=== PATIENT | female | born 1980 | race Caucasian/White ===

== ENCOUNTER 2018-04-09 15:23 | Emergency (ER) | payer BC, OTHER ==
[~2018-04-09] VITALS: Ht 149.9 cm; Wt 74.8 kg
[2018-04-09] MEDS ORDERED: DIPHTH,PERTUSS(ACELL),TET TOX 0.5 ML DISP.SYRIN. VAX IM ONE (15:45)
[2018-04-09] MEDS ORDERED: AMOXICILLIN/K CLAV 875/125MG TABLET. PO ONE (15:45)
--- NOTE | 2018-04-09 15:59 | RAD ---
Right forearm, 2 views, 04/09/2018: HISTORY: Dog bite, bruising and swelling No fracture or bony abnormality is detected. There is subcutaneous edema in the forearm most prominent laterally and anteriorly. No radiopaque foreign body is evident in the soft tissues. IMPRESSION: No significant bony abnormality is detected. Electronically signed by: Jaspreet Duenas MD (04/09/2018 3:55 PM) [facility]
[2018-04-09] MEDS ORDERED: HYDROcodone/APAP 10/325 1 TAB TABLET PO ONE (16:00)
[2018-04-09] MEDS ORDERED: TRAM50TA PO (16:20)
[2018-04-09] MEDS ORDERED: SULF1TAB24 PO (16:20)
[2018-04-09] MEDS ORDERED: SMZ/TMP 800/160MG TABLET. PO ONE ×2 (16:30→16:45)
[2018-04-09 16:50] VITALS: BP 127/86
--- NOTE | 2018-04-09 17:48 | ED.ADGEN ---
Past History Past Medical History: Migraines Past Surgical History: Other Alcohol Use: None Drug Use: None Adult General Chief Complaint Chief Complaint Animal bite to right forearm HPI HPI Patient is a 38-year-old handed female who presents with Dr. suarez to right forearm. 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 Patient noted to have 3 nongaping puncture wounds to the extensor forearm and one nongaping puncture wound to the flexor forearm. Patient states pain is gradually got worse throughout the day continued right arm use. Tetanus status is unknown. Review of Systems Review of Systems Review symptoms as per history of present illness. All other review symptoms are negative. All other systems were reviewed and found to be within normal limits, except as documented in this note. Current Medications Current Medications Current Medications Medications (Trade) Dose Ordered Sig/Jimenez Start Time Stop Time Status Last Admin Dose Admin Acetaminophen/ Hydrocodone Bitart (Lortab 10/325) 1 tab 1X ONCE 04/09/18 16:00 04/09/18 16:01 DC 04/09/18 16:44 1 TAB Amoxicillin/ Clavulanate Potassium (Augmentin 875/ 125mg) 1 tab 1X ONCE 04/09/18 15:45 04/09/18 15:45 DC Diphtheria/ Tetanus/Acell Pertussis (Boostrix) 0.5 ml ONCE ONCE 04/09/18 15:45 04/09/18 15:46 DC 04/09/18 16:46 0.5 ML Trimethoprim/ Sulfamethoxazole (Bactrim Ds) 1 tab 1X ONCE 04/09/18 16:45 04/09/18 16:46 DC Allergies Allergies Allergies Coded Allergies Type Severity Reaction Last Updated Verified Penicillins Allergy Unknown 04/09/18 Yes Physical Exam Physical Exam Constitutional: Well developed, well nourished, moderate pain, non-toxic appearance. [] HENT: Normocephalic, atraumatic, bilateral external ears normal, oropharynx moist, no oral exudates, nose normal. [] Extremities: Right forearm, minimal swelling, no cellulitis, non-gaping wounds to right extensor forearm consistent with animal bite. One non-gaping wound to flexor forearm. No purulent drainage or cellulitis. Pain with range of motion. No neurovascular deficits.] Current Patient Data Vital Signs Vital Signs Date Time Temp Pulse Resp B/P (MAP) Pulse Ox O2 Delivery O2 Flow Rate FiO2 04/09/18 16:50 82 18 127/86 (100) 98 Room Air 04/09/18 15:23 99.1 EKG EKG [] Radiology/Procedures Radiology/Procedures [XR forearm: No foreign bodies or bony injury] Course & Med Decision Making Course & Med Decision Making Pertinent Labs and Imaging studies reviewed. (See chart for details) [Tetanus updated. First dose of antibiotics given. Patient instructed to follow- up with PCP tomorrow or return to the ED for repeat evaluation.] Final Impression Final Impression [1. Animal bite to right forearm] Dragon Disclaimer Dragon Disclaimer This electronic medical record was generated, in whole or in part, using a voice recognition dictation system. MOIRA COLMENARES DO Apr 09, 2018 17:48
[2018-04-10] MEDS ORDERED: CLIN300C8 PO (14:18)
[2018-04-10] MEDS ORDERED: CIPR500T PO (14:18)
== END 2018-04-09 16:50 | disposition home or self-care (01) ==
LOC: ER 15:23
DX: S51.851A Open bite of right forearm, initial encounter (principal); G43.909 Migraine, unspecified, not intractable, without status migrainosus; Z88.0 Allergy status to penicillin; W54.0XXA Bitten by dog, initial encounter; Y93.89 Activity, other specified; Y99.8 Other external cause status; Y92.89 Other specified places as the place of occurrence of the external cause
CPT/HCPCS: 73090; 90471; 90715; 99284-25

== ENCOUNTER 2018-04-10 13:35 | Emergency (ER) | payer OTHER ==
[~2018-04-10] VITALS: Ht 149.9 cm; Wt 74.8 kg
[~2018-04-10 13:35] MED LIST: SULF1TAB24 PO; TRAM50TA PO
[2018-04-10 13:55] VITALS: BP 125/70
[2018-04-10] MEDS ORDERED: CIPR500T PO (14:18)
[2018-04-10] MEDS ORDERED: CLIN300C8 PO (14:18)
--- NOTE | 2018-04-10 14:28 | PHYS DOC ---
Past History Past Medical History: Migraines Past Surgical History: Other Alcohol Use: None Drug Use: None Adult General Chief Complaint Chief Complaint: WOUND CHECK HPI HPI Patient is a 38-year-old female who is here for a wound check. 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 Says she is here for routine recheck because she does not have a primary doctor in the area is still quite painful and she thinks it might be getting a little red. No fever. the dog has been monitored by animal [employer] for a 10 day. Patient states that she does not know the status of the dog's vaccinations. Review of Systems Review of Systems Constitutional: Denies fever or chills [] Musculoskeletal: arm pain] Integument: see hpi Neurologic: Denies headache, focal weakness or sensory changes [] Endocrine: Denies polyuria or polydipsia [] All other systems were reviewed and found to be within normal limits, except as documented in this note. Allergies Allergies Allergies Coded Allergies Type Severity Reaction Last Updated Verified Penicillins Allergy Unknown 04/09/18 Yes Physical Exam Physical Exam Constitutional: Well developed, well nourished, no acute distress, non-toxic appearance. [] HENT: Normocephalic, atraumatic, bilateral external ears normal, oropharynx moist, no oral exudates, nose normal. [] Eyes: PERRLA, EOMI, conjunctiva normal, no discharge. [] Neck: Normal range of motion, no tenderness, supple, no stridor. [] normal effort no increased work of breathing Abdomen: Bowel sounds normal, soft, no tenderness, no masses, no pulsatile masses. [] Skin: Warm, dry, no erythema, no rash. [] Back: No tenderness, no CVA tenderness. [] Extremities: Right forearm there is mild erythema with some ecchymosis, there is scattered abrasions on the volar and dorsal aspect. No fluctuance was identified Neurologic: Alert and oriented X 3, normal motor function, normal sensory function, no focal deficits noted. [] Psychologic: Affect normal, judgement normal, mood normal. [] Current Patient Data Vital Signs Vital Signs Date Time Temp Pulse Resp B/P (MAP) Pulse Ox O2 Delivery O2 Flow Rate FiO2 7/12/18 13:55 98.2 77 18 98 Room Air EKG EKG [] Radiology/Procedures Radiology/Procedures [] Course & Med Decision Making Course & Med Decision Making Pertinent Labs and Imaging studies reviewed. (See chart for details) 38-year-old female with recheck dog bite. Patient does have evidence of mild swelling with erythema suggestive of possible developing wound infection she was on Bactrim for prophylaxis but I think we should switch that to clindamycin and Cipro for better strep and anaerobic coverage. Patient is agreeable to this she has a penicillin allergy she said it was very very bad she cannot take any kind of penicillin so I have not given her Augmentin. The dog is currently being monitored animal control. Given the extremely low incidence of dog to humans transmission at this point in time we will not be doing any rabies prophylaxis the dog is successfully being monitored as we speak. Dragon Disclaimer Dragon Disclaimer This electronic medical record was generated, in whole or in part, using a voice recognition dictation system. Departure Departure: Impression: Primary Impression: Cellulitis Disposition: 01 HOME, SELF-CARE Condition: STABLE Patient Instructions: Animal Bite, [id number] Scripts Ciprofloxacin Hcl (CIPROFLOXACIN HCL) 500 Mg Tablet 1 TAB PO BID, #14 TAB Prov: DARRYL ZHANG MD 04/10/18 Clindamycin Hcl (CLINDAMYCIN HCL) 300 Mg Capsule 1 CAP PO TID, #21 CAP Prov: DARRYL ZHANG MD 04/10/18 DARRYL ZHANG MD Apr 10, 2018 14:28
== END 2018-04-10 14:22 | disposition home or self-care (01) ==
LOC: ER 13:35
DX: L03.113 Cellulitis of right upper limb (principal); S50.11XA Contusion of right forearm, initial encounter; G43.909 Migraine, unspecified, not intractable, without status migrainosus; Z88.0 Allergy status to penicillin; W54.0XXA Bitten by dog, initial encounter; Y93.89 Activity, other specified; Y99.8 Other external cause status; Y92.89 Other specified places as the place of occurrence of the external cause
CPT/HCPCS: 99283

== ENCOUNTER 2018-07-16 09:00 | Emergency (ER) | payer SELFPAY ==
[~2018-07-16] VITALS: Ht 149.9 cm; Wt 67.5 kg
[~2018-07-16 09:00] MED LIST changes: +CIPR500T PO; +CLIN300C8 PO
[2018-07-16 09:42] LABS: BASO # 0.1 x10^3/uL (0.0-0.2); BASO % 1 % (0-3); EOS % 0 % (0-3); HEMATOCRIT 39.9 % (36.0-47.0); HEMOGLOBIN 13.9 g/dL (12.0-15.5); LYMPH # 0.8 x10^3/uL (1.0-4.8); LYMPH % 13 % (24-48); MEAN CORPUSCULAR HEMOGLOBIN 32 pg (25-35); MEAN CORPUSCULAR HGB CONC 35 g/dL (31-37); MEAN CORPUSCULAR VOLUME 93 fL (79-100); MONO # 0.3 x10^3/uL (0.0-1.1); MONO % 5 % (0-9); NEUT # 4.8 x10^3uL (1.8-7.7); NEUT % 81 % (31-73); PLATELET COUNT 203 x10^3/uL (140-400); RED CELL DISTRIBUTION WIDTH 14.1 % (11.5-14.5); WHITE BLOOD COUNT 5.9 x10^3/uL (4.0-11.0)
[2018-07-16] MEDS ORDERED: ASPIRIN 81 MG TAB.CHEW PO ONE (09:45)
--- NOTE | 2018-07-16 09:45 | PHYS DOC ---
Past History Past Medical History: Migraines Past Surgical History: Other Smoking: Cigarettes Alcohol Use: None Drug Use: None Adult General Chief Complaint Chief Complaint: CHEST PAIN HPI HPI Patient is a 38 year old female who presents with complaining of chest pain. Patient complaining of constant substernal sharp pain for the last 4 days with radiation to her back that getting worse with taking deep breaths. Patient complaining of intermittent fevers and states she had temperature of 101 this morning and took Excedrin that helped for her fever and pain. Patient complaining of mild nonproductive cough and shortness of breath without vomiting , abdominal pain, urinary symptoms, sick contact, sore throat and headache. Patient rated her pain 5/10. Review of Systems Review of Systems Constitutional: reports fever Eyes: Denies change in visual acuity, redness, or eye pain [] HENT: Denies nasal congestion or sore throat [] Respiratory: reports cough or shortness of breath [] Cardiovascular: No additional information not addressed in HPI [] GI: Denies abdominal pain, nausea, vomiting, bloody stools or diarrhea [] : Denies dysuria or hematuria [] Musculoskeletal: Denies back pain or joint pain [] Integument: Denies rash or skin lesions [] Neurologic: Denies headache, focal weakness or sensory changes [] Endocrine: Denies polyuria or polydipsia [] All other systems were reviewed and found to be within normal limits, except as documented in this note. Current Medications Current Medications Current Medications Medications (Trade) Dose Ordered Sig/Jimenez Start Time Stop Time Status Last Admin Dose Admin Aspirin (Children'S Aspirin) 324 mg 1X ONCE 07/16/18 09:45 07/16/18 09:46 07/16/18 09:36 324 MG Allergies Allergies Allergies Coded Allergies Type Severity Reaction Last Updated Verified Penicillins Allergy Unknown 07/16/18 Yes Physical Exam Physical Exam Constitutional: Well developed, well nourished, mild distress, non-toxic appearance. [] HENT: Normocephalic, atraumatic, bilateral external ears normal, oropharynx moist, pharyngeal erythema, no oral exudates, nose normal. [] Eyes: PERRLA, EOMI, conjunctiva normal, no discharge. [] Neck: Normal range of motion, no tenderness, supple, no stridor. [] Cardiovascular:Heart rate regular rhythm, no murmur [] Lungs & Thorax: Bilateral breath sounds clear to auscultation [] Abdomen: Bowel sounds normal, soft, no tenderness, no masses, no pulsatile masses. [] Skin: Warm, dry, no erythema, no rash. [] Back: No tenderness, no CVA tenderness. [] Extremities: No tenderness, no cyanosis, no clubbing, ROM intact, no edema. [] Neurologic: Alert and oriented X 3, normal motor function, normal sensory function, no focal deficits noted. [] Psychologic: Affect anxious, judgement normal, mood normal. [] Current Patient Data Lab Results Laboratory Tests Test 07/16/18 09:20 White Blood Count 5.9 x10^3/uL (4.0-11.0) Red Blood Count 4.30 x10^6/uL (3.50-5.40) Hemoglobin 13.9 g/dL (12.0-15.5) Hematocrit 39.9 % (36.0-47.0) Mean Corpuscular Volume 93 fL (79-100) Mean Corpuscular Hemoglobin 32 pg (25-35) Mean Corpuscular Hemoglobin Concent 35 g/dL (31-37) Red Cell Distribution Width 14.1 % (11.5-14.5) Platelet Count 203 x10^3/uL (140-400) Neutrophils (%) (Auto) 81 % (31-73) H Lymphocytes (%) (Auto) 13 % (24-48) L Monocytes (%) (Auto) 5 % (0-9) Eosinophils (%) (Auto) 0 % (0-3) Basophils (%) (Auto) 1 % (0-3) Neutrophils # (Auto) 4.8 x10^3uL (1.8-7.7) Lymphocytes # (Auto) 0.8 x10^3/uL (1.0-4.8) L Monocytes # (Auto) 0.3 x10^3/uL (0.0-1.1) Eosinophils # (Auto) 0.0 x10^3/uL (0.0-0.7) Basophils # (Auto) 0.1 x10^3/uL (0.0-0.2) EKG EKG EKG interpreted by me. EKG at 0907 showed normal sinus rhythm at rate of 95, no acute ST and T-wave abnormalities. Radiology/Procedures Radiology/Procedures [address] [id number] IMAGING REPORT Signed PATIENT: LASHON COOPER ACCOUNT: [id number] : 1980 LOCATION: ER AGE: 38 SEX: F EXAM STATUS: REG ER ORD. PHYSICIAN: BRITTNEY ORDAZ MD REASON: CHEST PAIN PROCEDURE: CHEST PA & LATERAL Chest, PA and Lateral: Technique: PA and lateral views of the chest were obtained. History: Chest pain, fever, shortness of breath. Comparison: None. Findings: The heart and pulmonary vasculature appear within normal limits. The lungs are clear. Impression: No acute chest process is seen. Electronically signed by: Phill Houser MD (07/16/2018 9:41 AM) [id number] DICTATED AND SIGNED BY: PHILL HOUSER MD DATE: 07/16/18 0938 CC: BRITTNEY ORDAZ MD; PCP,NO ~ Course & Med Decision Making Course & Med Decision Making Pertinent Labs and Imaging studies reviewed. (See chart for details) Evaluation of patient in ER showed 38-year-old female patient with complaining of substernal chest pain for 4 days that getting worse with breathing. Patient was afebrile in ER and had unremarkable EKG and chest x-ray and labs including d -dimer and cardiac enzymes. Patient treated with IV fluid, Toradol, Solu-Medrol and felt better. Patient instructed to quit smoking. Plan discharge patient home with diagnose of pleurisy. Dragon Disclaimer Dragon Disclaimer This electronic medical record was generated, in whole or in part, using a voice recognition dictation system. Departure Departure: Impression: Primary Impression: Pleurisy Additional Impressions: Tobacco abuse Tobacco abuse counseling Disposition: HOME, SELF-CARE (at 1040) Condition: IMPROVED Referrals: PCPKIANA (PCP) Patient Instructions: Pleurisy, Smoking Cessation, Tips For Success Additional Instructions: Drink plenty of liquids Follow-up with your primary care physician in 3-5 days Return to ER if not getting better Scripts Benzonatate (TESSALON PERLE) 100 Mg Capsule 1 CAP PO TID, #21 CAP Prov: BRITTNEY ORDAZ MD 07/16/18 Naproxen (NAPROSYN) 500 Mg Tablet 1 TAB PO BID, #20 TAB Prov: BRITTNEY ORDAZ MD 07/16/18 Methylprednisolone (MEDROL) 4 Mg Tab.ds.pk 1 PKG PO UD, #1 PKG Prov: BRITTNEY ORDAZ MD 07/16/18 Problem Qualifiers BRITTNEY ORDAZ MD Jul 16, 2018 09:45
--- NOTE | 2018-07-16 09:46 | EKG ---
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
[2018-07-16 09:56] LABS: ALBUMIN 3.8 g/dL (3.4-5.0); ALBUMIN/GLOBULIN RATIO 1.1 (1.0-1.7); CALCIUM 8.8 mg/dL (8.5-10.1); CREATININE 1.2 mg/dL (0.6-1.0); GFR 50.8; MAGNESIUM 1.9 mg/dL (1.8-2.4); POTASSIUM 3.9 mmol/L (3.5-5.1); TOTAL BILIRUBIN 0.2 mg/dL (0.2-1.0); TOTAL PROTEIN 7.4 g/dL (6.4-8.2)
[2018-07-16] MEDS ORDERED: IV NORMAL SALINE 1,000ML 1,000 ML IV ONE (10:15)
[2018-07-16] MEDS ORDERED: NAPR-683 PO (10:40)
[2018-07-16] MEDS ORDERED: METH4TAB2 PO (10:40)
[2018-07-16] MEDS ORDERED: BENZ100C PO (10:40)
[2018-07-16] MEDS ORDERED: KETOROLAC 30 MG/ML VIAL. IV ONE (10:45)
[2018-07-16] MEDS ORDERED: methylPREDNISolone SOD SUCC PF 125 MG/2 ML VIAL. IV ONE (10:45)
[2018-07-16 10:57] VITALS: BP 113/69
== END 2018-07-16 10:59 | disposition home or self-care (01) ==
LOC: ER 09:00
DX: R09.1 Pleurisy (principal); F17.210 Nicotine dependence, cigarettes, uncomplicated; G43.909 Migraine, unspecified, not intractable, without status migrainosus; Z71.6 Tobacco abuse counseling; Z88.0 Allergy status to penicillin
CPT/HCPCS: 36415; 71046; 80053; 82550; 83690; 83735; 84484; 85025; 85379; 93005; 96374; 96375; 99285; J1885; J2930; J7030

== ENCOUNTER → 2021-09-15 | Outpatient (CLI) | payer OTHER ==
[~2021-09-15] MED LIST changes: +BENZ100C PO; -CIPR500T PO; +CIPR500T2 PO; +CLIN-95 PO; -CLIN300C8 PO; +METH4TAB2 PO; +NAPR-683 PO
--- NOTE | 2021-09-15 11:29 | RAD ---
Site ID: [id number] EXAMINATION: XR CHEST 2V. HISTORY: 41 years Female Reason: COUGH, SOA . COMPARISON: July 16, 2020. Findings: The lungs are clear. The heart size is normal. There is no effusion or pneumothorax. The mediastinum and baldo appear unremarkable. Impression: Unremarkable study. Electronically signed by: Gio Woo MD (09/15/2021 11:27 AM) [id number]
== END ==
LOC: PMG 10:51
PROVIDERS: ATTEND Nurse Practitioner Family
DX: J18.9 Pneumonia, unspecified organism (principal)
CPT/HCPCS: 71046